=== PATIENT | male | born 1990 | race Caucasian/White ===

== ENCOUNTER 2023-10-19 13:02 | Outpatient (CLI) | payer MEDICAID | END 2023-10-19 23:59 | disposition home or self-care (01) | LOC: MRI 13:02 | PROVIDERS: ATTEND Student in an Organized Health Care Education/Training Program | DX: R42 Dizziness and giddiness (principal); J34.89 Other specified disorders of nose and nasal sinuses | CPT/HCPCS: 70551 ==

== ENCOUNTER 2025-02-13 14:11 | Emergency (ER) | payer MEDICAID, OTHER ==
[~2025-02-13] VITALS: Ht 177.8 cm; Wt 74.3 kg
--- NOTE | 2025-02-13 14:41 | Physician Documentation ---
History of Present Illness ~ Chief Complaint: Bite-animal Stated Complaint: L ARM RASH HPI This 34-year-old male presented with a scratches to his left arm and a cat bite to his left index finger from a calves three days ago. Patient reports unknown last tetanus shot. Medication Reconciliation Allergies: Coded Allergies: Sulfa (Sulfonamide Antibiotics) (Verified Allergy, Mild, RASH, 02/13/25) Scheduled Amox Tr/Potassium Clavulanate 875/125 MG (Augmentin 875/125 MG), 1 TAB PO BID Past Medical History Past Medical History: No Pertinent History Review of Systems ROS As stated above in the HPI, otherwise all systems are reviewed and negative. Physical Exam Vital Signs: Temperature: 98.4, Heart Rate: 83, Respiratory Rate: 12, BP: 157/95, Pulse Oximetry: 97, Weight: 74.300 Physical Exam VITALS: Reviewed and as above. GENERAL: Alert, nontoxic appearing, no apparent distress. RESPIRATORY: No increased work of breathing, no respiratory distress, speaking in full clear sentences SKIN: Many scratches to anterior aspect of left forearm, erythema and purulent drainage from a wound to palmar aspect of left 2nd finger Progress Results/Orders Results/Orders Vital Signs 02/13/25 02/13/25 14:14 17:48 Temp 98.4 98.4 Pulse 83 80 Resp 12 16 B/P (MAP) 157/95 152/90 Pulse Ox 97 98 Medical Decision Making Additional information obtaine: N/A Findings MSE performed in triage and patient returned to ED lobby by nursing staff to await available ED room. Please see physician's chart for remainder of visit. Differential Dx:Considerations: Include: Abrasion, Allergic reaction, Cellulitis, Contusion, Fracture, Laceration, Neurovascular injury, Punture wound, Retained foreign body, Urticaria Departure Disposition: 30 STILL A PATIENT Impression: Primary Impression: Cat bite Qualified Codes: W55.01XA - Bitten by cat, initial encounter Referrals: NO PRIMARY CARE PROVIDER (PCP) Prescriptions Amox Tr/Potassium Clavulanate 875/125 MG (Augmentin 875/125 MG) 875 Mg-125 Mg Tablet 1 TAB PO BID, #20 TAB Prov: JUAN TIPTON MD 02/13/25 Signature Scribe Signature: No scribe Attestation: The note accurately reflects work and decisions made by me.RADHA Moss 1 04/17/24 13:12 SCOOTER THAKKAR Feb 13, 2025 14:41
--- NOTE | 2025-02-13 16:33 | Physician Documentation ---
History of Present Illness General Chief Complaint: Bite-animal Stated Complaint: L ARM RASH Time Seen by MD: 16:15 Source: patient Mode of Arrival: POV History of Present Illness Initial Comments 34 y/o M with no relevant PMH presenting with 3 days of L index finger pain and swelling. Per patient he was scratched and possibly bitten by a cat in multiple places on his L arm and face, with the most serious injury on the L index finger at the DIP joint. Two days after the injury, the L index DIP joint began leaking pus. He put Bactrim ointment on it, and was given amoxicillin at an urgent care for the infection. Last night he noticed pain, swelling and redness at the antecubital fossa and the armpit, where he was not scratched. He also developed chills. He became concerned about a "blood infection" and brought himself to the ED. He states the pain and swelling now feel like they have reached the MP joint and have started to spread to the 1st and 3rd digit of the hand. He is able to bend the joint a little but states it makes the pain worse. Tylenol has helped with the pain and chills. Medication Reconciliation Allergies: Coded Allergies: Sulfa (Sulfonamide Antibiotics) (Verified Allergy, Mild, RASH, 02/13/25) Scheduled Amox Tr/Potassium Clavulanate 875/125 MG (Augmentin 875/125 MG), 1 TAB PO BID Past Medical History Past Medical History: No Pertinent History Past Surgical History: tonsillectomy Smoking: Cigarettes (1 ppd) Alcohol Use: None Drug Use: marijuana Physical Exam Physical Exam Vital Signs: Temperature: 98.4, Heart Rate: 83, Respiratory Rate: 12, BP: 157/95, Pulse Oximetry: 97, Weight: 74.300 Physical Exam VITALS: Reviewed and as above. GENERAL: Alert, no apparent distress. HEENT: Normocephalic, atraumatic, PERRL, EOMI, dry mucosa, no erythema MUSCULOSKELETAL Limited ROM of the L index DIP joint. SKIN: Superficial scratches on the R cheek. L thumb, and L wrist. L index finger has erythema, edema, purulent drainage at the DIP joint with tenderness to palpation. L arm is tender to palpation along the dorsal aspect from the antecubital fossa to the axilla. L antecubital fossa and L axilla are mildly erythematous. NEURO: Oriented x4, No motor or sensory deficit PSYCH: Normal mood and affect, no agitation Progress Results/Orders Results/Orders Completed Orders - JUAN TIPTON MD Ampicillin/Sulbac 3gm/Ns 100ml (Unasyn 3 (02/13/25 16:31) Probenecid Tablet (Probenecid Tablet) (02/13/25 16:35) Vital Signs 02/13/25 02/13/25 14:14 17:48 Temp 98.4 98.4 Pulse 83 80 Resp 12 16 B/P (MAP) 157/95 152/90 Pulse Ox 97 98 Medical Decision Making Additional information obtaine: old records Findings The patient is a 34-year-old male with some cellulitis to the dorsal aspect of his distal phalanx there was no volar swelling or fullness and there was no evidence of flexor tenosynovitis the patient is otherwise nontoxic the patient was given Unasyn and probenecid here in the emergency department the patient will be discharged on Augmentin he has been advised if he gets worse that he should return to the emergency room. Prior the patient's prior hospitalizations has been reviewed the patient's pulse oximetry was interpreted as normal and adequate. Differential Diagnosis Cellulitis, abscess, osteomyelitis Departure Disposition: 01 HOME / SELF CARE / HOMELESS Impression: Primary Impression: Cat bite Qualified Codes: W55.01XA - Bitten by cat, initial encounter Discharge Instructions: Animal Bite, Adult Additional Instructions: Return in 24 hours if symptoms are not significantly improved. Start taking the Augmentin as soon as possible. Referrals: NO PRIMARY CARE PROVIDER (PCP) Prescriptions Amox Tr/Potassium Clavulanate 875/125 MG (Augmentin 875/125 MG) 875 Mg-125 Mg Tablet 1 TAB PO BID, #20 TAB Prov: JUAN TIPTON MD 02/13/25 Signature Scribe Signature: No scribe Attestation: The note accurately reflects work and decisions made by me.Juan Tipton MD 02/14/25 16:08 JUAN TIPTON MD Feb 13, 2025 16:33
[2025-02-13] MEDS ORDERED: AMOX-580 PO (16:44)
[2025-02-13] MEDS: probenecid 500mg tablet PO ONE (17:05)
[2025-02-13] MEDS: ampicillin/sulbac 3gm/NS 100ml 100 ML IV STA (17:05)
[2025-02-13 17:48] VITALS: BP 152/90; PULSE 80; RESP 16; TEMP 98.4; O2SAT 98
== END 2025-02-13 17:50 | disposition home or self-care (01) ==
LOC: ER 14:12
DX: S60.411A Abrasion of left index finger, initial encounter (principal); S40.812A Abrasion of left upper arm, initial encounter; F12.90 Cannabis use, unspecified, uncomplicated; Z88.2 Allergy status to sulfonamides; W55.01XA Bitten by cat, initial encounter; Y93.89 Activity, other specified; Y92.89 Other specified places as the place of occurrence of the external cause; Y99.8 Other external cause status; Z90.89 Acquired absence of other organs
CPT/HCPCS: 96365; 99284; J0295; J7030; A4353